=== PATIENT | male | born 1960 | race Hispanic/Latino ===

== ENCOUNTER → 2022-03-06 | Outpatient (CLI) | payer MEDICARE, OTHER, SELFPAY ==
[2022-03-06 12:23] LABS: Hemoglobin 14.1 g/dL (13.0-16.5)
[2022-03-06 12:47] LABS: AST(SGOT) 21 U/L (15-37); Alanine Aminotransfer ALT/SGPT 39 U/L (16-61); Albumin, Serum 3.8 g/dL (3.2-5.0); Alkaline Phosphatase 64 U/L (45-117); Anion Gap 6 (5-15); BUN 15 mg/dL (7-18); BUN/Creat Ratio 12.5 RATIO (10-20); Calcium,Total 9.2 mg/dL (8.5-10.1); Chloride 103 mmol/L (98-107); EST Glomerular Filtration Rate 66 mL/min (>60); Est Glom Filt Rate - Afr Amer 79 mL/min (>60); Globulin 3.8 g/dL (2.2-4.2); Glucose 119 mg/dL (74-106); Potassium 4.2 mmol/L (3.5-5.1); Protein, Total 7.6 g/dL (6.4-8.2); Sodium Level 138 mmol/L (136-145)
[2022-03-06 14:46] LABS: Hemoglobin A1c 7.4 % (3.8-5.6)
== END | disposition home or self-care (01) ==
LOC: BIMLAB 09:38
PROVIDERS: Internal Medicine Endocrinology, Diabetes & Metabolism; Referring Provider Nurse Practitioner Family; Visit Provider Nurse Practitioner Family
DX: E11.65 Type 2 diabetes mellitus with hyperglycemia (principal); E66.01 Morbid (severe) obesity due to excess calories; Z68.41 Body mass index [BMI] 40.0-44.9, adult; Z79.4 Long term (current) use of insulin
CPT/HCPCS: 36415; 80053; 83036; 85018

== ENCOUNTER → 2022-04-30 | Outpatient (CLI) | payer MEDICARE, OTHER, SELFPAY ==
[2022-04-30 12:02] LABS: Pathologist Comment May follow
[2022-04-30 15:19] LABS: AUTO B FLUID DILUENT BKGD CT WBC <0.1 RBC <0.01 (W<.1,R<.01)
[2022-04-30 15:20] LABS: Appearance /Synovial Fluid Sl hazy (CLEAR); CRYSTALS, BODY FLUID See PATH REV; Color / Synovial Fluid Yellow (Pale Yellow); Source- Body Fluid SYNOVIAL; Viscosity / Synovial Fluid Sl. Viscous (HIGH)
[2022-04-30 15:22] LABS: Body Fluid QC Type(s) BF1Q,BF2Q,BF3Q; Lymph 51 %; Monocyte /Synovial Fluid 23 %; Neutrophil 8 % (0-25); Other Cell /Synovial Fluid 18 %; Synovial Fld Mononuclear WBC # 0.079 10^3/ul; Synovial Fld Mononuclear WBC % 94.1 %; Synovial Fld Polynuclear WBC # 0.005 10^3/uL; Synovial Fld Polynuclear WBC % 5.9 %
[2022-05-01 11:22] LABS: Source / Synovial Fluid RIGHT KNEE
[2022-05-01 13:34] LABS: Pathologist Review Reviewed
[2022-05-05 18:23] LABS: GLUCOSE, SYNOVIAL FLUID 239 mg/dL (.)
[2022-05-05 18:27] LABS: PROTEIN, SYNOVIAL FLUID 3.6 g/dL (.)
== END | disposition home or self-care (01) ==
PROVIDERS: Visit Provider Orthopaedic Surgery
DX: M25.561 Pain in right knee (principal); Z87.39 Personal history of other diseases of the musculoskeletal system and connective tissue
CPT/HCPCS: 82945; 84157; 87070; 87075; 87205; 89050; 89051; 89060

== ENCOUNTER → 2025-02-06 | Outpatient (CLI) | payer MEDICARE, OTHER, SELFPAY ==
--- NOTE | 2025-02-06 14:10 | RAD_ITS ---
PROCEDURE: SHOULDER MIN 2 VIEWS 02/06/2025 REASON FOR EXAM: PAIN IN SHOULDER AFTER FALL TECHNIQUE: Four views right shoulder COMPARISON: 11/17/2022 FINDINGS: No fracture or dislocation. There is again noted widening of the acromioclavicular distance which is not significantly changed and may represent sequela of previous AC separation or distal clavicle resection with possibility of osteolysis considered less likely given the lack of tapered appearance. Again this is not significantly changed since 2022. Coracoclavicular distance appears within limits. 2 rotator cuff anchors and findings of rotator cuff tendinopathy again noted. RAD/Shoulder min 2 Views IMPRESSION: No fracture or dislocation. There is again noted widening of the acromioclavicular distance which is not si gnificantly changed as above. 2 rotator cuff anchors and findings of rotator cuff tendinopathy again noted. Reading Location: [id number]
== END | disposition home or self-care (01) ==
LOC: MTRAD 14:09
PROVIDERS: Referring Provider Clinical Nurse Specialist Adult Health; Visit Provider Clinical Nurse Specialist Adult Health
DX: M25.511 Pain in right shoulder (principal)
CPT/HCPCS: 73030